=== PATIENT | female | born 1995 | race Caucasian/White ===

== ENCOUNTER 2019-01-18 21:00 | Emergency (ER) | payer OTHER, MEDICAID ==
[~2019-01-18] VITALS: Ht 162.6 cm; Wt 61.7 kg
[~2019-01-18 21:00] MED LIST: CEPHALEXIN 500500 M2 PO
[2019-01-18] MEDS ORDERED: BACTRIM DS TAB1 EACH PO (21:22)
[2019-01-18 21:23] LABS: URINE BILIRUBIN 1+ (Negative); URINE BLOOD 3+ (Negative); URINE CLARITY SL CLOUDY; URINE COLOR YELLOW; URINE GLUCOSE-RANDOM NEGATIVE (Negative); URINE KETONES NEGATIVE (Negative); URINE LEUKOCYTES-REFLEX TRACE (Negative); URINE NITRITE-REFLEX POSITIVE (Negative); URINE PROTEIN 2+ (Negative); URINE SPECIFIC GRAVITY >= 1.030 (1.005-1.030); URINE UROBILINOGEN 0.2 E.U./dl (0.2-1.0)
[2019-01-18 21:30] LABS: MUCUS 0-3 Light strn/LPF (None Seen); SQUAMOUS >10 Many /LPF (0-3)
[2019-01-18 21:31] LABS: ABSOLUTE BASOPHILS 0.1 thou/uL (0.0-0.2); ABSOLUTE EOSINOPHILS 0.2 thou/uL (0.0-0.7); ABSOLUTE LYMPHOCYTES 2.3 thou/uL (0.8-5.3); ABSOLUTE MONOCYTES 0.7 thou/uL (0.0-1.2); ABSOLUTE NEUTROPHILS 10.5 thou/uL (1.6-8.1); BASOPHILS 0.6 %; EOSINOPHILS 1.4 %; HEMATOCRIT 35.5 % (37.0-47.0); HEMOGLOBIN 12.3 gm/dL (12.0-15.0); LYMPHOCYTES 16.8 %; MCH 30.9 pg (26.0-34.0); MCHC 34.5 g/dL (28.0-37.0); MCV 89.6 fL (80.0-100.0); MPV 7.9 fl. (7.2-11.1); NUCLEATED RBCS 0 /100WBC; PLATELET COUNT* 380 thou/uL (150-400); POLYS 76.2 %; RBC 3.97 mil/uL (4.20-5.00); RDW-CV 12.8 % (10.5-14.5); WBC 13.8 thou/uL (4.0-11.0)
[2019-01-18 21:31] LABS: CASTS None Seen /LPF (None Seen); WBC CLUMPS Few (None Seen)
[2019-01-18 21:32] LABS: CRYSTALS None Seen /LPF (None Seen)
[2019-01-18 21:34] LABS: URINE WBC-REFLEX >25 Many /HPF (0-5)
[2019-01-18 21:40] LABS: CALCIUM 9.7 mg/dL (8.5-10.1); CREATININE 0.6 mg/dL (0.6-1.3); POTASSIUM 3.3 mmol/L (3.5-5.1)
[2019-01-18 21:45] LABS: ALBUMIN 3.9 g/dL (3.4-5.0); TOTAL BILIRUBIN 0.2 mg/dL (<0.1-1.0); TOTAL PROTEIN 8.1 g/dL (6.4-8.2)
[2019-01-19] MEDS ORDERED: KEFLEX500 M1 PO (00:27)
[2019-01-19] MEDS ORDERED: PHENERGAN 25 MG25 M1 PO (00:28)
[2019-01-19 00:48] VITALS: BP 99/56
[2019-01-19] MEDS ORDERED: LORCET 5-325 M1 EACH PO (01:45)
[2019-01-19 09:10] LABS: ICTOTEST (BILI CONFIRMATORY) Negative (Negative)
== END 2019-01-19 00:50 | disposition home or self-care (01) ==
LOC: M.ERS 21:00
PROVIDERS: Emergency Medicine
DX: O23.41 Unspecified infection of urinary tract in pregnancy, first trimester (principal); O46.8X1 Other antepartum hemorrhage, first trimester; Z3A.09 9 weeks gestation of pregnancy

== ENCOUNTER 2020-02-13 17:27 | Emergency (ER) | payer OTHER, MEDICAID ==
[~2020-02-13] VITALS: Ht 162.6 cm; Wt 63.5 kg
[~2020-02-13 17:27] MED LIST changes: +BACTRIM DS TAB1 EACH PO; +KEFLEX500 M1 PO; +LORCET 5-325 M1 EACH PO; +PHENERGAN 25 MG25 M1 PO
[2020-02-13 19:42] LABS: URINE BILIRUBIN NEGATIVE (Negative); URINE BLOOD 3+ (Negative); URINE COLOR YELLOW; URINE GLUCOSE-RANDOM NEGATIVE (Negative); URINE KETONES NEGATIVE (Negative); URINE LEUKOCYTES-REFLEX 1+ (Negative); URINE NITRITE-REFLEX NEGATIVE (Negative); URINE PROTEIN NEGATIVE (Negative); URINE UROBILINOGEN 0.2 E.U./dl (0.2-1.0)
[2020-02-13 19:47] LABS: URINE CLARITY CLOUDY
[2020-02-13 19:53] LABS: SQUAMOUS >10 Many /LPF (0-3)
[2020-02-13 19:54] LABS: BACTERIA-REFLEX None Seen /HPF (None Seen); CASTS None Seen /LPF (None Seen); CRYSTALS None Seen /LPF (None Seen); URINE RBC 3-10 Few /HPF (0-2); URINE WBC-REFLEX 6-15 Few /HPF (0-5)
[2020-02-13] MEDS ORDERED: KEFLEX500 M1 PO (21:13)
[2020-02-13] MEDS ORDERED: HYDROCODON-ACE1 EAC7 PO (21:13)
[2020-02-13] MEDS ORDERED: NAPROSYN500 MG PO (21:13)
[2020-02-13 21:19] VITALS: BP 148/72
== END 2020-02-13 21:20 | disposition home or self-care (01) ==
LOC: M.ERS 17:27
PROVIDERS: Nurse Practitioner Family
DX: N23 Unspecified renal colic (principal); R35.0 Frequency of micturition; K59.00 Constipation, unspecified; Z79.899 Other long term (current) drug therapy; Z79.2 Long term (current) use of antibiotics

== ENCOUNTER 2020-03-22 20:47 | Emergency (ER) | payer OTHER, MEDICAID ==
[~2020-03-22] VITALS: Ht 165.1 cm; Wt 62.1 kg
[~2020-03-22 20:47] MED LIST changes: +HYDROCODON-ACE1 EAC7 PO; +NAPROSYN500 MG PO
[2020-03-22] MEDS ORDERED: EFFEXOR XR150 MG PO (21:00)
[2020-03-22] MEDS ORDERED: AMOXICILLIN 50500 M1 PO (22:46)
[2020-03-22] MEDS ORDERED: HYDROCODON-ACE1 EAC8 PO (22:46)
[2020-03-22 23:21] VITALS: BP 126/95
== END 2020-03-22 23:23 | disposition home or self-care (01) ==
LOC: M.ERS 20:47
DX: K02.9 Dental caries, unspecified (principal); Z87.442 Personal history of urinary calculi

== ENCOUNTER 2021-01-25 20:34 | Emergency (ER) | payer OTHER, MEDICAID ==
[~2021-01-25] VITALS: Ht 162.6 cm; Wt 62.1 kg
[~2021-01-25 20:34] MED LIST changes: +AMOXICILLIN 50500 M1 PO; +EFFEXOR XR150 MG PO; +HYDROCODON-ACE1 EAC8 PO
[2021-01-25 20:48] LABS: URINE BILIRUBIN NEGATIVE (Negative); URINE BLOOD 3+ (Negative); URINE COLOR YELLOW; URINE GLUCOSE-RANDOM NEGATIVE (Negative); URINE KETONES NEGATIVE (Negative); URINE PROTEIN 2+ (Negative); URINE SPECIFIC GRAVITY >= 1.030 (1.005-1.030)
[2021-01-25 20:49] LABS: URINE CLARITY CLOUDY; URINE LEUKOCYTES-REFLEX 2+ (Negative); URINE NITRITE-REFLEX POSITIVE (Negative)
[2021-01-25 20:54] LABS: SQUAMOUS 0-3 Few /LPF (0-3)
[2021-01-25 20:55] LABS: CASTS None Seen /LPF (None Seen); CRYSTALS None Seen /LPF (None Seen); URINE RBC >20 Many /HPF (0-2); URINE WBC-REFLEX >25 Many /HPF (0-5)
[2021-01-25] MEDS ORDERED: PHENAZOPYRIDIN200 M2 PO ×2 (21:13→21:14)
[2021-01-25] MEDS ORDERED: CEPHALEXIN500 MG PO ×2 (21:13→21:14)
[2021-01-25] MEDS ORDERED: APAP W/CODEINE1 TA2 PO ×2 (21:13→21:14)
[2021-01-25 21:26] VITALS: BP 125/86
== END 2021-01-25 21:26 | disposition home or self-care (01) ==
LOC: M.ERS 20:34
PROVIDERS: Physician Assistant
DX: N39.0 Urinary tract infection, site not specified (principal)

== ENCOUNTER 2021-04-19 12:30 | Emergency (ER) | payer OTHER, MEDICAID ==
[~2021-04-19] VITALS: Ht 162.6 cm; Wt 61.7 kg
[~2021-04-19 12:30] MED LIST changes: +APAP W/CODEINE1 TA2 PO; +CEPHALEXIN500 MG PO; +PHENAZOPYRIDIN200 M2 PO
[2021-04-19] MEDS ORDERED: AUGMENTIN 500-1 EACH PO (13:15)
[2021-04-19] MEDS ORDERED: TESSALON PERLE100 MG PO (13:15)
[2021-04-19 16:16] LABS: HEMATOCRIT 40.5 % (37.0-47.0); HEMOGLOBIN 13.4 gm/dL (12.0-15.0); MCH 29.5 pg (26.0-34.0); MCV 89.1 fL (80.0-100.0); MPV 7.5 fl. (7.2-11.1); RBC 4.54 mil/uL (4.20-5.00); RDW-CV 13.5 % (10.5-14.5); WBC 4.4 thou/uL (4.0-11.0)
[2021-04-19 16:32] LABS: CREATININE 0.7 mg/dL (0.6-1.3); POTASSIUM 3.2 mmol/L (3.5-5.1)
[2021-04-19 17:55] VITALS: BP 99/69
--- NOTE | 2021-04-19 17:58 | EKG ---
[place] [address] ELECTROCARDIOGRAM REPORT Name: WALTERRIANNA N Room: [facility]#: [id number] Admission: 04/19/21 Attend Phys: Discharge: 04/19/21 Date of : 89 Date of Service: 04/19/211607 Report #: [id number] THIS REPORT FOR: //name// 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
== END 2021-04-19 17:55 | disposition home or self-care (01) ==
LOC: M.ERS 12:30
PROVIDERS: Emergency Medicine Emergency Medical Services
DX: R05.9 Cough, unspecified (principal); E87.6 Hypokalemia; J02.9 Acute pharyngitis, unspecified; Z87.442 Personal history of urinary calculi; Z79.899 Other long term (current) drug therapy; Z79.2 Long term (current) use of antibiotics